=== PATIENT | male | born 1965 | race Caucasian/White ===

== ENCOUNTER 2021-07-09 07:36 | Emergency (ER) | payer SELFPAY ==
--- NOTE | 2021-07-09 08:18 | RAD REPORT ---
EXAM DESCRIPTION: [facility] Single View07/09/2021 8:02 am CLINICAL HISTORY: Chest pain COMPARISON: none FINDINGS: The lungs appear clear of acute infiltrate. The heart is mildly enlarged. Mild prominence of mediastinum. PA and lateral chest series recommended
--- NOTE | 2021-07-09 08:21 | RAD REPORT ---
EXAM DESCRIPTION: CT - Head Brain Wo Cont - 07/09/2021 8:08 am CLINICAL HISTORY: Headache COMPARISON: None. TECHNIQUE: Computed axial tomography of the head was obtained. IV contrast was not requested. All CT scans are performed using dose optimization technique as appropriate and may include automated exposure control or mA/KV adjustment according to patient size. FINDINGS: An intracranial bleed is not seen . The ventricles are normal in caliber. No significant hypodense areas within the brain visualized No extra-axial fluid collection is noted. Fluid within the sinuses/ mastoids is not seen. Mucus retention cyst right maxillary sinus IMPRESSION: No acute intracranial abnormality is seen. If patient's symptoms persist MRI of the bra in would be recommended.
[2021-07-09 08:28] LABS: Hematocrit 48.8 % (39.6-49.0); Lymphocytes % 47.3 % (15.3-44.8); MPV 9.9 fL (7.6-11.3); RBC Red Blood Cell Count 5.12 M/uL (4.33-5.43)
[2021-07-09] MEDS ORDERED: IBUPROFEN 200 MG TAB PO ONE (08:35)
[2021-07-09 08:49] LABS: Potassium 3.5 mmol/L (3.5-5.1); Troponin High Sensitivity 4.5 pg/mL (<58.9)
[2021-07-09] MEDS ORDERED: METOCLOPRAMIDE 10 MG/2mL INJ ONE (09:09)
[2021-07-09] MEDS ORDERED: dexAMETHasone 10 MG/ML VIAL ONE (09:09)
[2021-07-09] MEDS ORDERED: DIPHENHYDRAMINE 50 MG/ML VIAL ONE (09:09)
--- NOTE | 2021-07-09 09:40 | ER ---
Nurse's Notes [facility] Name: Dayne Houston Age: 55 yrs Sex: Male : 1965 Arrival Date: 07/09/2021 Time: 07:36 Bed 18 Private MD: Diagnosis: Headache;Essential (primary) hypertension Presentation: 07/09 07:50 Chief complaint: Patient states: he woke up at approx 0530 with a "terrible" headache ap3 and chest pain. Patient reports he is staying with his parents after the recent of his mother. He states they are heavy smokers, and isn't sure if his symptoms are caused by being around the heavy smoke or his elevated blood pressure. Patient states the headache is a 8/10 on a scale of 0-10. He his holding pressure on his head with his hand in attempt to alleviate pain. Coronavirus screen: At this time, the client does not indicate any symptoms associated with coronavirus-19. Ebola Screen: No symptoms or risks identified at this time. Initial Sepsis Screen: Does the patient meet any 2 criteria? No. Patient's initial sepsis screen is negative. Does the patient have a suspected source of infection? No. Patient's initial sepsis screen is negative. Risk Assessment: Do you want to hurt yourself or someone else? Patient reports no desire to harm self or others. Onset of symptoms was July 09, 2021 at 05:30. 07:50 Method Of Arrival: Ambulatory ap3 07:50 Acuity: ANISH 3 ap3 Triage Assessment: 07:55 Headache History: The patient has had previous headaches and this one is different than ap3 previous episodes. General: Appears uncomfortable, Behavior is cooperative. Pain: Complains of pain in head and chest Pain currently is 8 out of 10 on a pain scale. Pain began 2 hours ago. Also complains of chest pain. Neuro: Level of Consciousness is awake, alert, obeys commands, Oriented to person, place, time, situation, Speech is normal. Cardiovascular: Patient's skin is warm and dry. Respiratory: Airway is patent. - Immunization history:: Adult Immunizations unknown. - Social history:: Smoking status: Patient denies any tobacco usage or history of. Patient uses alcohol, on a daily basis. Screenin:26 Abuse screen: Denies threats or abuse. Denies injuries from another. Nutritional bp screening: No deficits noted. Tuberculosis screening: No symptoms or risk factors identified. Fall Risk None identified. Assessment: 08:25 General: SEE TRIAGE NOTE. bp 09:52 Reassessment: PT D/C HOME AMBULATORY WITH FAMILY, DX WITH HEADACHE AND HTN. bp Vital Signs: 07:50 BP 150 / 110; Pulse 76; Resp 17; Pulse Ox 98% ; Weight 95.25 kg; Height 5 ft. 9 in. ap3 (175.26 cm); Pain 8/10; 09:01 BP 138 / 82; Pulse 63; Resp 17; Pulse Ox 95% ; bp 09:51 BP 123 / 74; Pulse 64; Resp 11; Pulse Ox 95% ; bp 07:50 Body Mass Index 31.01 (95.25 kg, 175.26 cm) ap3 ED Course: 07:36 Patient arrived in ED. as 07:42 Roddy Farah DO is Attending Physician. ms3 07:53 Triage completed. ap3 07:56 Arm band placed on right wrist. ap3 08:04 XRAY Chest (1 view) In Process Unspecified. EDMS 08:09 CT Head Brain wo Cont In Process Unspecified. EDMS 08:24 Jose Dowling, RN is Primary Nurse. bp 08:26 Patient has correct armband on for positive identification. Bed in low position. Call bp light in reach. Side rails up X2. 08:39 Troponin HS Sent. mh5 08:39 Basic Metabolic Panel Sent. mh5 08:40 Initial lab(s) drawn, by ga, sent to lab. EKG done, by ED staff, reviewed by Roddy Farah DO. Inserted saline lock: 20 gauge in right antecubital area, using aseptic technique. Blood collected. 08:41 Placed in gown. Warm blanket given. Pillow given. parts chaser on. Pulse ox on. NIBP mh5 on. 09:39 Hoang Layne MD is Referral Physician. ms3 09:52 No provider procedures requiring assistance completed. IV discontinued. bp Administered Medications: 07:44 CANCELLED (Physician Discretion): Aspirin Chewable Tablet 324 mg PO once; 81 mg tablets ms3 x 4 08:30 Drug: Ibuprofen 600 mg Route: PO; bp 09:10 Drug: Reglan (metoCLOPramide) 10 mg Route: IVP; Site: right antecubital; bp 09:10 Drug: Benadryl (diphenhydrAMINE) 25 mg Route: IVP; Site: right antecubital; bp 09:10 Drug: Decadron - Dexamethasone 10 mg Route: IVP; Site: right antecubital; bp Medication: 07:57 VIS not applicable for this client. ap3 Outcome: 09:40 Discharge ordered by . ms3 09:52 Discharged to home ambulatory, with family. bp 09:52 Condition: stable 09:52 Discharge instructions given to patient, Instructed on discharge instructions, follow up and referral plans. Demonstrated understanding of instructions, follow-up care. 09:53 Patient left the ED. bp Signatures: Dispatcher [employer] EDMS Rachael Uriostegui Maria 5 Jose Dowling RN RN bp Shreya Kaiser RN RN ap3 Roddy Farah DO DO ms3
--- NOTE | 2021-07-09 09:40 | EDPHYS ---
Physician Documentation [facility] Name: Dayne Houston Age: 55 yrs Sex: Male : 1965 Arrival Date: 07/09/2021 Time: 07:36 Bed 18 Private MD: ED Physician Roddy Farah HPI: 07/09 07:44 This 55 yrs old Male presents to ER via Unassigned with complaints of High Blood ms3 Pressure, Headache, Chest Pressure. 07:44 The patient has elevated blood pressure and discovered this at a relative's home. ms3 Onset: The symptoms/episode began/occurred acutely, 2 hour(s) ago. Modifying factors: The symptoms are aggravated by Nothing, The symptoms are alleviated by Nothing. Associated signs and symptoms: Pertinent positives: chest pain, headache, nausea, vomiting. Severity of symptoms: At its worst the blood pressure was severe, this morning. The patient has experienced similar episodes in the past. - Immunization history:: Adult Immunizations unknown. - Social history:: Smoking status: Patient denies any tobacco usage or history of. Patient uses alcohol, on a daily basis. ROS: 07:44 Constitutional: Negative for fever, and chills. Eyes: Negative for injury, pain, ms3 redness, and discharge, Neck: Negative for injury, pain, and swelling, Respiratory: Negative for shortness of breath, cough, wheezing, and pleuritic chest pain, MS/Extremity: Negative for injury and deformity, Skin: Negative for injury, rash, and discoloration, Psych: Negative for depression, anxiety, suicide ideation, homicidal ideation, and hallucinations. 07:44 Cardiovascular: Positive for chest pain. 07:44 Abdomen/GI: Positive for nausea and vomiting. 07:44 Neuro: Positive for headache. Exam: 07:44 Constitutional: This is a well developed, well nourished patient who is awake, alert, ms3 and in no acute distress. Head/Face: Normocephalic, atraumatic. Eyes: Pupils equal round and reactive to light, extra-ocular motions intact. Lids and lashes normal. Conjunctiva and sclera are non-icteric and not injected. Periorbital areas with no swelling, redness, or edema. Neck: Trachea midline, no cervical lymphadenopathy. Supple, full range of motion without nuchal rigidity, or vertebral point tenderness. No Meningismus. Chest/axilla: Normal chest wall appearance and motion. Nontender with no deformity. Cardiovascular: Regular rate and rhythm with a normal S1 and S2. No gallops, murmurs, or rubs. Normal PMI, no JVD. No pulse deficits. Respiratory: Lungs have equal breath sounds bilaterally, clear to auscultation and percussion. No rales, rhonchi or wheezes noted. No increased work of breathing, no retractions or nasal flaring. Abdomen/GI: Soft, non-tender, with normal bowel sounds. No distension or tympany. No guarding or rebound. No evidence of tenderness throughout. Skin: Warm, dry with normal turgor. Normal color with no rashes, no lesions, and no evidence of cellulitis. Neuro: Awake and alert, GCS 15, oriented to person, place, time, and situation. Cranial nerves II-XII grossly intact. Motor strength 5/5 in all extremities. Sensory grossly intact. Cerebellar exam normal. Normal gait. Psych: Awake, alert, with orientation to person, place and time. Behavior, mood, and affect are within normal limits. 07:44 ECG was reviewed by the Attending Physician. Vital Signs: 07:50 BP 150 / 110; Pulse 76; Resp 17; Pulse Ox 98% ; Weight 95.25 kg; Height 5 ft. 9 in. ap3 (175.26 cm); Pain 8/10; 09:01 BP 138 / 82; Pulse 63; Resp 17; Pulse Ox 95% ; bp 09:51 BP 123 / 74; Pulse 64; Resp 11; Pulse Ox 95% ; bp 07:50 Body Mass Index 31.01 (95.25 kg, 175.26 cm) ap3 MDM: 07:42 Patient medically screened. ms3 14:11 Differential diagnosis: intracerebral hemorrhage, ACS vs HTN. Data reviewed: vital ms3 signs, nurses notes, lab test result(s), EKG, radiologic studies, plain films. Data interpreted: Pulse oximetry: on room air is 95 %. Interpretation: normal. Counseling: I had a detailed discussion with the patient and/or guardian regarding: the historical points, exam findings, and any diagnostic results supporting the discharge/admit diagnosis, lab results, radiology results, the need for outpatient follow up. ED course: Discussed labs, CXR, EKG, physical exam findings with patient. Patient to follow-up with primary care physician in 2-3 days. Patient understands and agrees with plan. All questions were answered. Return precautions discussed include worsening symptoms, or any other concerns. On reevaluation patient is alert and oriented x4, in no apparent distress, nontoxic-appearing, speaking full sentences, ambulatory in emergency department. . 07/09 07:42 Order name: Basic Metabolic Panel; Complete Time: 08:57 ms3 07/09 07:42 Order name: CBC with Diff; Complete Time: 08:49 ms3 07/09 07:42 Order name: Troponin HS; Complete Time: 08:57 ms3 07/09 07:42 Order name: XRAY Chest (1 view); Complete Time: 08:49 ms3 07/09 07:44 Order name: CT Head Brain wo Cont; Complete Time: 08:49 ms3 07/09 07:42 Order name: EKG; Complete Time: 07:43 ms3 07/09 07:42 Order name: Cardiac monitoring; Complete Time: 08:39 ms3 07/09 07:42 Order name: EKG - Nurse/Tech; Complete Time: 08:39 ms3 07/09 07:42 Order name: IV Saline Lock; Complete Time: 08:39 ms3 07/09 07:42 Order name: Labs collected and sent; Complete Time: 08:39 ms3 07/09 07:42 Order name: O2 Per Protocol; Complete Time: 08:39 ms3 07/09 07:42 Order name: O2 Sat Monitoring; Complete Time: 08:39 ms3 EC:44 Rate is 71 beats/min. Rhythm is regular. Left axis deviation noted. QRS interval is ms3 normal. Clinical impression: NSR w/ Non-specific ST/T Changes. Interpreted by me. Administered Medications: 07:44 CANCELLED (Physician Discretion): Aspirin Chewable Tablet 324 mg PO once; 81 mg tablets ms3 x 4 08:30 Drug: Ibuprofen 600 mg Route: PO; bp 09:10 Drug: Reglan (metoCLOPramide) 10 mg Route: IVP; Site: right antecubital; bp 09:10 Drug: Benadryl (diphenhydrAMINE) 25 mg Route: IVP; Site: right antecubital; bp 09:10 Drug: Decadron - Dexamethasone 10 mg Route: IVP; Site: right antecubital; bp Disposition Summary: 07/09/21 09:40 Discharge Ordered Location: Home ms3 Condition: Stable ms3 Diagnosis - Headache ms3 - Essential (primary) hypertension ms3 Followup: ms3 - With: Hoang Layne MD - When: 2 - 3 days - Reason: Recheck today's complaints Discharge Instructions: - Discharge Summary Sheet ms3 - General Headache Without Cause ms3 - Hypertension, Adult ms3 Forms: - Medication Reconciliation Form ms3 - Thank You Letter ms3 - Antibiotic Education ms3 - Prescription Opioid Use ms3 Signatures: Dispatcher [employer] Jose Lopez RN RN bp Shreya Kaiser RN RN ap3 Roddy Farah, DO ms3 Corrections: (The following items were deleted from the chart) 07:44 07:42 Aspirin Chewable Tablet 324 mg PO once; 81 mg tablets x 4 ordered. ms3 ms3
[2021-07-09 10:03] VITALS: O2SAT 95
[2021-07-09 10:05] VITALS: BP 123/74
--- NOTE | 2021-07-10 07:41 | EKG ---
Test Date: 2021-07-09 Test Time: 07:44:09 Property Man: ALP MEASUREMENT RESULTS: Intervals: Rate: 71 VA: 124 QRSD: 96 QT: 406 QTc: 441 [place]: P: 6 VA: 124 QRS: -6 T: 40 INTERPRETIVE STATEMENTS: Normal sinus rhythm ST & T wave abnormality, consider anterior ischemia Abnormal ECG No previous ECG available for comparison Electronically Signed On 07-10-21 07:37:22 CDT by Jeremie Moore
== END 2021-07-09 09:53 | disposition home or self-care (01) ==
LOC: ER 07:36
DX: R51.9 Headache, unspecified (principal); I10 Essential (primary) hypertension; R07.9 Chest pain, unspecified; R11.0 Nausea
CPT/HCPCS: 36415; 70450; 71045; 80048; 84484; 85025; 93005; 96374; 96375; 99284; J1100; J1200; J2765